=== PATIENT | female | born 2000 ===

== ENCOUNTER 2020-05-28 16:35 | Emergency (ER) | payer SELFPAY ==
--- NOTE | 2020-05-28 17:05 | RAD ---
XR Elbow Rt 4 View STANDARD INDICATION: Elbow pain and injury COMPARISON:None. FINDINGS: Bones: There is a nondisplaced fracture involving the central to lateral aspect of the radial head, t raversing the radial head in the AP dimension. Joints: There is mild joint capsular distention Soft tissues: No radiopaque foreign body is evident. IMPRESSION: Nondisplaced radial head fracture
== END 2020-05-28 18:16 | disposition home or self-care (01) ==
LOC: ERS 16:35
DX: S52.124A Nondisplaced fracture of head of right radius, initial encounter for closed fracture (principal); F41.9 Anxiety disorder, unspecified; X50.1XXA Overexertion from prolonged static or awkward postures, initial encounter
CPT/HCPCS: 29105